=== PATIENT | female | born 1960 | race Asian ===

== ENCOUNTER 2017-02-23 00:26 | Emergency (ER) | payer MEDICARE, OTHER ==
[~2017-02-23] VITALS: Ht 157.5 cm; Wt 59.0 kg
[~2017-02-23 00:26] MED LIST: FLONASE1 SPRAYS NASAL; HYDROCODON-ACE1 EA15 ORAL; IBUPROFEN600 MG ORAL; IMURAN50 MG PO; KEFLEX500 MG ORAL; LORATADINE10 M2 PO; MULTIVITAMINS1 EAC2 ORAL; NKM; OMEPRAZOLE20 M2 ORAL; PREDNISONE5 GM MC; REGLAN10 MG ORAL; UNOBMED; ZOFRAN ODT4 MG ORAL; ZOFRAN4 MG ORAL
--- NOTE | 2017-02-23 01:04 | Emergency Room Report ---
History of Present Illness General Chief Complaint: Pain Source: Patient Present Illness HPI Patient presents with complaints of pain to the right ankle Patient presents she [place]30 last night when she twisted her right ankle She reports 10/ 10 pain to bilateral areas of the ankle Denies any knee pain denies any Foot pain Denies any other trauma as far as pelvic discomfort Allergies: Coded Allergies: No Known Allergies (Unverified , 02/23/17) Patient History Past Medical History: see triage record Pertinent Family History: none Last Menstrual Period: n/a Reviewed Nursing Documentation: PMH: Agreed, PSxH: Agreed Nursing Documentation-PMH Hx Cardiac Problems: No Hx Hypertension: No Hx Pacemaker: No Hx Asthma: No Hx COPD: No Hx Diabetes: No Hx Cancer: No Hx Gastrointestinal Problems: Yes - cirrhosis of liver Hx Dialysis: No Hx Neurological Problems: No Hx Cerebrovascular Accident: No Hx Seizures: No Review of Systems All Other Systems: negative except mentioned in HPI Physical Exam Vital Signs Date Time Temp Pulse Resp B/P Pulse Ox O2 Delivery O2 Flow Rate FiO2 02/23/17 00:42 97.9 68 16 146/79 98 Room Air Sp02 EP Interpretation: reviewed, normal General Appearance: mild distress - In acute pain Head: normocephalic, atraumatic Eyes: bilateral eye EOMI, bilateral eye PERRL ENT: normal pharynx, no angioedema Neck: supple Respiratory: lungs clear Cardiovascular #1: regular rate, rhythm Gastrointestinal: soft, no mass Musculoskeletal: other - Swelling noted to bilateral malleoli region, tender on palpation Neurologic: alert, oriented x3, responsive Skin: other - swelling to the ankle Lymphatic: no adenopathy Procedures Splinting Splinting : Consent: Verbal Location: right ankle Pre-Made Type: aircast Splint: sugar-tong Pre-Proc Neuro Vasc Exam: normal Post-Proc Neuro Vasc Exam: normal Patient Tolerated: Well Complications: None Medical Decision Making Diagnostic Impression: Primary Impression: Ankle sprain ER Course Patient's x-ray imaging does not reveal any obvious acute fracture Given the discomfort and evaluation patient was provided a splint Requires close outpatient followup and repeat imaging as needed Other X-Ray Diagnostic Results X-Ray ordered: right ankle # of Views/Limited Vs Complete: 3 View Interpretation: no fractures, no dislocation, no soft tissue swelling Indication: Pain Impression: Other - mild soft tissue swelling Date Electronically Signed: Feb 23, 2017 Time Electronically Signed: 01:15 Interpreting ER Physician: Jin Last Vital Signs Date Time Temp Pulse Resp B/P Pulse Ox O2 Delivery O2 Flow Rate FiO2 02/23/17 00:42 97.9 68 16 146/79 98 Room Air Status: improved Disposition: HOME, SELF-CARE Condition: Improved Scripts Ibuprofen* (MOTRIN*) 600 Mg Tablet 600 MG ORAL Q8H Y for For Pain, #20 TAB 0 Refills Prov: ELAINE GELLER D.O. 02/23/17 Additional Instructions: Patient is provided with the discharge instructions notified to follow up with primary doctor in the next 2-3 days otherwise return to the er with any worsening symptoms. Please note that this report is being documented using [employer] technology. This can lead to erroneous entry secondary to incorrect interpretation by the dictating instrument. ELAINE GELLER D.O. Feb 23, 2017 01:04
[2017-02-23] MEDS ORDERED: Norco 10mg/325mg tab ORAL ONE (01:15)
[2017-02-23] MEDS ORDERED: IBUPROFEN600 MG ORAL (01:54)
[2017-02-23 01:55] VITALS: BP 135/76
[2017-02-23 02:00] VITALS: BP 135/76
--- NOTE | 2017-02-23 10:39 | Diagnostic Imaging Report ---
Indications: Right ankle trauma, pain Technique: 3 views right ankle. Findings: Comparison: None No fracture, dislocation, joint space widening , surrounding soft tissue swelling/foreign body/gas, or other acute changes are identified. IMPRESSION: No evidence of acute injury to the right ankle.
== END 2017-02-23 02:30 | disposition home or self-care (01) ==
LOC: EMR 02:14
DX: S93.401A Sprain of unspecified ligament of right ankle, initial encounter (principal); W19.XXXA Unspecified fall, initial encounter; Y93.9 Activity, unspecified; Y92.9 Unspecified place or not applicable; K74.60 Unspecified cirrhosis of liver
CPT/HCPCS: 29540; 99283